=== PATIENT | female | born 1970 | race Caucasian/White ===

== ENCOUNTER 2016-10-05 15:55 | Emergency (ER) | payer MEDICARE ==
[2016-10-05 17:12] VITALS: BP 145/87
[2016-10-05 17:12] LABS: Basophils % (Auto) 0.9 % (0.0-1.8); Eosinophils % (Auto) 0.7 % (0.0-4.3); Hematocrit 39.8 % (30.3-42.9); Hemoglobin 12.8 gm/dl (10.1-14.3); Mean Corpuscular HGB Conc 32 % (30-34); Mean Corpuscular Hemoglobin 27 pg (28-32); Mean Corpuscular Volume 85 fl (79-97); Platelet Count 353 K/mm3 (140-440); Red Blood Count 4.72 M/mm3 (3.65-5.03); Red Cell Distribution Width 14.6 % (13.2-15.2); White Blood Count 6.7 K/mm3 (4.5-11.0)
[2016-10-05 17:22] LABS: INR 2.6 (0.87-1.13)
[2016-10-05 17:23] LABS: Partial Thromboplastin Time 43.6 Sec. (24.2-36.6)
[2016-10-05 17:27] LABS: Bilirubin,Urine NEG (Negative); Blood,Urine SM (Negative); Ketones,Urine NEG (Negative); Leukocyte Esterase,Urine NEG (Negative); Nitrite,Urine NEG (Negative); Protein,Urine <15 mg/dL mg/dL (Negative); Urobilinogen,Urine < 2.0 mg/dL (<2.0); WBC,Urine < 1.0 /HPF (0.0-6.0)
[2016-10-05 17:32] LABS: Alanine Aminotransferase 7 units/L (7-56); Albumin 4.1 g/dL (3.9-5); Albumin/Globulin Ratio 1.1 %; Alkaline Phosphatase 105 units/L (35-129); Anion Gap 18 mmol/L; BUN/Creatinine Ratio 18.33; Bilirubin,Total < 0.20 mg/dL (0.1-1.2); Blood Urea Nitrogen 11 mg/dL (7-17); Calcium 8.8 mg/dL (8.4-10.2); Carbon Dioxide 27 mmol/L (22-30); Chloride 98.8 mmol/L (98-107); Glucose 119 mg/dL (65-100); Potassium 4.3 mmol/L (3.6-5.0); Sodium 139 mmol/L (137-145); Total Protein 7.7 g/dL (6.3-8.2)
--- NOTE | 2016-10-05 19:22 | Emergency Department Report ---
HPI - General Chief Complaint: Extremity Problem,Nontraumatic Time Seen by Provider: 10/05/16 19:02 - HPI HPI: Complaint I was sent here for clearance This is a 46-year-old black female who went to [facility] for treatment of depression does have a history of right lower extremity DVT on Coumadin she was sent to the ER for INR check and medical clearance for inpatient psychiatry. Not any pain swelling no chest pain no shortness of breath. ED Past Medical Hx - Past Medical History Previous Medical History?: Yes Hx Congestive Heart Failure: No Hx Diabetes: No Hx Deep Vein Thrombosis: Yes Hx Pulmonary Embolism: Yes (03/2016) Hx Psychiatric Treatment: Yes (bipolar, depression) Hx Asthma: Yes Hx COPD: Yes Additional medical history: IVC filter - Surgical History Past Surgical History?: Yes - Social History Smoking Status: Never Smoker Substance Use Type: None - Medications Home Medications: Home Medications Medication Instructions Recorded Confirmed Last Taken Type ARIPiprazole [Aripiprazole] 15 mg PO DAILY #30 tablet 09/27/16 Unknown Rx Carvedilol [Coreg] 3.125 mg PO DAILY #60 tablet 09/27/16 Unknown Rx Escitalopram [Lexapro] 20 mg PO DAILY #60 tablet 09/27/16 Unknown Rx Lurasidone HCl [Latuda] 60 mg PO DAILY #30 tablet 09/27/16 Unknown Rx Miconazole Nitrate [Miconazole 7] 100 mg VG HS #1 kit 09/27/16 Unknown Rx Pantoprazole [Protonix TAB] 40 mg PO DAILY #30 tablet 09/27/16 Unknown Rx Warfarin [Coumadin] 10 mg PO QDAY #30 tablet 09/27/16 Unknown Rx ED Review of Systems ROS: Stated complaint: POSS DVT IN RT KNEE Other details as noted in HPI Comment: All other systems reviewed and negative Constitutional: other Musculoskeletal: myalgia Physical Exam - Physical Exam Vital Signs: Vital Signs 10/05/16 10/05/16 10/05/16 16:42 16:51 17:02 Temperature 98.2 F Pulse Rate 78 88 Respiratory 22 18 Rate Blood Pressure 145/87 [Right] O2 Sat by Pulse 99 98 98 Oximetry 10/05/16 18:34 Temperature Pulse Rate Respiratory 20 Rate Blood Pressure [Right] O2 Sat by Pulse Oximetry Physical Exam: Vital signs reviewed Gen. alert and oriented 3 in no distress Head atraumatic normocephalic Eyes PERR LA EOMI Chest regular rate and rhythm normal S1-S2 lungs clear bilaterally Abdomen soft nondistended Back no point tenderness paravertebral tenderness Neuro no focal deficit. Psych normal mood. ED Course Vital Signs 10/05/16 10/05/16 10/05/16 16:42 16:51 17:02 Temperature 98.2 F Pulse Rate 78 88 Respiratory 22 18 Rate Blood Pressure 145/87 [Right] O2 Sat by Pulse 99 98 98 Oximetry 10/05/16 18:34 Temperature Pulse Rate Respiratory 20 Rate Blood Pressure [Right] O2 Sat by Pulse Oximetry ED Medical Decision Making - Lab Data Result diagrams: 10/05/16 16:50 10/05/16 16:50 Critical care attestation.: If time is entered above; I have spent that time in minutes in the direct care of this critically ill patient, excluding procedure time. ED Disposition Clinical Impression: Chronic deep vein thrombosis (DVT) Disposition: DC-01 TO HOME OR SELFCARE Is pt being admited?: No Does the pt Need Aspirin: No Condition: Stable Additional Instructions: Patient is medical clear for inpatient psychiatric treatment. Return to ER with chest pain shortness of breath. Continued Coumadin therapy as previously prescribed. Referrals: PRIMARY CARE, [Primary Care Provider] - 3-5 Days
== END 2016-10-05 20:10 | disposition home or self-care (01) ==
LOC: ED 15:55
DX: I82.5Z1 Chronic embolism and thrombosis of unspecified deep veins of right distal lower extremity (principal); F31.9 Bipolar disorder, unspecified; J45.909 Unspecified asthma, uncomplicated; J44.9 Chronic obstructive pulmonary disease, unspecified; Z79.01 Long term (current) use of anticoagulants
CPT/HCPCS: 36415; 80053; 81001; 85025; 85610; 85730; 99284